=== PATIENT | female | born 1945 | race Caucasian/White ===

== ENCOUNTER → 2016-11-09 | Outpatient (CLI) | payer BC, OTHER ==
[~2016-11-09] VITALS: Ht 152.4 cm; Wt 95.0 kg
[~2016-11-09] MED LIST: ADVIN10/60 INH; ALBUAER19 INH; ASPI81TA28 PO; ATOR-26 PO; CHOLCAP5 PO; FIBER GUMMY PO; FLNIN NAE; FURO-85 PO; HYDR-4715 PO; HYDR25TA4 PO; LOSA100T65 PO; METO-649 PO; MULT1CAP3 PO; NAPR500T3 PO; SERT100T PO; TRAZ100T29 PO
[2016-11-09 15:15] VITALS: BP 152/78; PULSE 68; Ht 152.4 cm; Wt 95.0 kg
== END | disposition home or self-care (01) ==
LOC: C.NEUR 13:27
PROVIDERS: ATTEND Internal Medicine Pulmonary Disease
DX: G47.30 Sleep apnea, unspecified (principal); I27.2 Other secondary pulmonary hypertension; J45.909 Unspecified asthma, uncomplicated

== ENCOUNTER → 2017-03-11 | Outpatient (CLI) | payer BC, OTHER ==
[~2017-03-11] MED LIST changes: -METO-649 PO; +METO1TAB71 PO
[2017-03-11 13:21] LABS: BLOOD UREA NITROGEN 21 mg/dl (7-18); BUN/CREATININE RATIO 26.2 (10-20); CALCIUM 9.3 mg/dl (8.5-10.1); CARBON DIOXIDE 32 mmol/L (21-32); CHLORIDE 106 mmol/L (98-107); CREATININE 0.79 mg/dl (0.60-1.20); GLUCOSE 97 mg/dl (70-99); POTASSIUM 3.6 mmol/L (3.5-5.1); SODIUM 142 mmol/L (136-145)
== END | disposition home or self-care (01) ==
LOC: C.LABPVFM 09:33
PROVIDERS: ATTEND Nurse Practitioner Family
DX: Z01.812 Encounter for preprocedural laboratory examination (principal)

== ENCOUNTER → 2017-03-15 | Outpatient (CLI) | payer BC, OTHER | END | disposition home or self-care (01) | LOC: C.LABPVFM 12:07 | PROVIDERS: ATTEND Family Medicine | DX: J02.9 Acute pharyngitis, unspecified (principal) ==

== ENCOUNTER → 2017-05-11 | Outpatient (CLI) | payer BC, OTHER ==
[2017-05-11 17:34] LABS: ALT/SGPT 35 U/L (12-78); BLOOD UREA NITROGEN 16 mg/dl (7-18); BUN/CREATININE RATIO 23.2 (10-20); CARBON DIOXIDE 30 mmol/L (21-32); CHLORIDE 106 mmol/L (98-107); CHOLESTEROL 127 mg/dl (0-200); CREATININE 0.68 mg/dl (0.60-1.20); GLUCOSE 88 mg/dl (70-99); POTASSIUM 3.7 mmol/L (3.5-5.1); SODIUM 141 mmol/L (136-145); TRIGLYCERIDES 77 mg/dl (0-150); VERY LOW DENSITY LIPOPROT CALC 15 mg/dl
[2017-05-11 17:37] LABS: ALB/GLOB RATIO 1.1 (0.9-2); ALKALINE PHOSPHATASE 87 U/L (45-117); AST/SGOT 23 U/L (15-37); CHOLESTEROL/HDL RATIO 2.5; HDL CHOLESTEROL 51 mg/dl; LDL CHOLESTEROL CALCULATED 61 mg/dl
== END | disposition home or self-care (01) ==
LOC: C.LABPVFM 10:59
PROVIDERS: ATTEND Family Medicine
DX: I10 Essential (primary) hypertension (principal); R73.03 Prediabetes; E78.5 Hyperlipidemia, unspecified; R09.81 Nasal congestion

== ENCOUNTER → 2017-09-02 | Outpatient (CLI) | payer BC, OTHER ==
[~2017-09-02] MED LIST changes: -METO1TAB71 PO; +METO200T32 PO
== END | disposition home or self-care (01) ==
LOC: C.LABPVFM 13:15
PROVIDERS: ATTEND Family Medicine
DX: N39.0 Urinary tract infection, site not specified (principal)

== ENCOUNTER → 2017-12-02 | Outpatient (CLI) | payer BC, OTHER ==
[~2017-12-02] VITALS: Ht 152.4 cm; Wt 91.8 kg
[~2017-12-02] MED LIST changes: +NAPR-1231 PO; -NAPR500T3 PO
[2017-12-02 13:19] VITALS: BP 156/86; PULSE 78; Ht 152.4 cm; Wt 91.8 kg
== END | disposition home or self-care (01) ==
LOC: C.NEUR 12:45
PROVIDERS: ATTEND Internal Medicine Pulmonary Disease
DX: G47.30 Sleep apnea, unspecified (principal); J45.909 Unspecified asthma, uncomplicated

== ENCOUNTER 2020-01-02 14:12 | Observation (INO) ==
--- NOTE | 2020-01-02 14:15 | Emergency Department Note ---
Impression & Plan Brain TIA, Hypertension, Headache ED Provider Note NAME: DAPHNE BOTELLO AGE: 74 SEX: F : 1945 ARRIVES VIA: Ambulance INFORMANT: Patient, ED PROVIDER(S): Kenny Perry MD Chief Complaint: Slurred speech, head well puller strength weak, Dr. referred HPI: The get a call from EMS due to concern for a stroke. The patient has had some slurred speech and some right decreased head well puller strength. This started around 9 AM this morning his last known well. Patient is a prior history of TIA and expressive aphasia. The patient states she has had some associated frontal and right-sided headache. No recent trauma. The patient does take a baby aspirin which she did take this morning. Patient states that she feels that her symptoms are slightly improving. Patient denies any sensory deficits. Patient states nothing is made it worse in particular. Patient did not take anything prior to arrival for headache. ROS: See HPI for pertinent positives and negatives. A total of 10 systems were reviewed and otherwise negative. Past medical history: See below Surgical history: See below Social history: See below Physical Exam: GENERAL: NAD, non-toxic. Wearing a mask. EYE EXAM: Normal conjunctiva. PERRL, no anisocoria and EOM's grossly intact w/o pain. NECK: Supple, no nuchal rigidity, no adenopathy, non-tender. No signs of meningismus. LUNGS: Clear to auscultation. Normal chest wall mechanics. HEART: NSR, no MRG. ABDOMEN: Abdomen soft, non-tender, normo-active bowel sounds, no masses, no rebound or guarding. BACK: No CVA TTP. SKIN: No rashes and no bruising. UPPER EXTREMITIES: Upper extremities are grossly normal. LOWER EXTREMITIES: Grossly normal, no edema. NEURO EXAM: A&O x3, cranial nerves II-XII grossly intact, slow deliberate speech without obvious dysarthria, moves all 4 extremities on command w/o issue. Good finger to nose, no drift, no sensory deficits. Differential diagnoses: Infection, dehydration, metabolic abnormality, hypo/hyperglycemia, electrolyte disturbance, anemia, hypoxia, cardiac sources, intracerebral event, toxicologic, neurologic, as well as other pathologies. Course: Patient was seen and evaluated the bedside. Full history physical exam was performed. EKG: Indication: Strokelike symptoms Sinus bradycardia, rate of 56, normal intervals, normal axis, T wave flattening in aVL, no ST changes. No significant change from March 14, 2019. Imaging Studies: Radiology results as stated below per my review in the radiologist's interpretation: CT angio head w con, CT angio neck with con CLINICAL HISTORY: 74 years-old Female with Stroke evaluation . Acute strok elike symptoms COMPARISON STUDY: Head CT of same day TECHNIQUE: Following the IV administration of 119 cc of Optiray 320, CT angiogram of the head and neck was performed from the skull base to the vertex. Images are reviewed in the axial, sagittal, and coronal planes. 3-D MIPS images are created and assessed. IV contrast was administered without complication. All measurements were obtained according to NASCET criteria. A dose lowering technique was utilized adhering to the principles of ALARA. CT DOSE: 1164.02 mGy.cm FINDINGS: The heart appears enlarged. The opacified pulmonary arterial tree is unremarkable. Severe mixed plaque of the thoracic aortic arch. Suboptimal arterial opacification secondary to contrast bolus timing. There is patency of the imaged bilateral subclavian arteries and innominate artery. The common carotid arteries are patent. Moderate plaque the carotid bulbs and proximal internal carotid arteries results in less than 50% stenosis. There is focal kinking and tortuosity of the proximal cervical segment right ICA, image 273 series 6. There is moderate calcified plaque of the cavernous and supraclinoid segments. Moderate luminal narrowing involves the right cavernous segment, image 72 series 5. Mild multifocal luminal narrowing of the middle and anterior ce rebral arteries. Diminutive right A1 segment is likely developmental. Focal short segment area of high-grade stenosis involves the right A2 segment on image 118 series 5 and image 38 of series 500. Dominant left vertebral artery. There is tortuosity of the distal V2 segment left vertebral artery. There is moderate luminal narrowing of the distal V2 segment right vertebral artery is noted at the level of C2 involving a segment of at least 2 cm of the vessel. The majority of the right vertebral artery terminates into the right PICA. Diminutive basilar artery. origin of the left posterior cerebral artery. Mild multifocal luminal narrowing of the posterior cerebral arteries. No aneurysm, dissection, high-grade stenosis or proximal branch occlusion. Cerebral venous sinuses appear patent. Lung apices are clear without pneumothorax. Unremarkable thyroid. Secretions are noted within the nasopharynx, nasal turbinates. Mild mucosal thickening of the ethmoid air cells. No abnormal intracranial enhancement. Degenerative changes of the spine. Developmental bony fusion is noted at C6-C7. IMPRESSION: 1. No aneurysm, dissection, or proximal branch occlusion. 2. Atherosclerotic vascular disease with mild to moderate multifocal luminal narrowing as above. 3. Focal short segment area of high-grade stenosis involves the right A2 segment as above. ACT 112: Negative or not required by law. The above report was generated using voice recognition software. It may contain grammatical, syntax or spelling errors. Electronically signed by: Jeff Diana M.D. 01/02/2020 2:[address] head/brain wo con CLINICAL HISTORY: Strokelike symptoms COMPARISON STUDY: No previous studies for comparison. TECHNIQUE: Axial CT of the brain is performed from the vertex to the skull base. IV contrast was not administered for this examination. A dose lowering technique was utilized adhering to the principles of ALARA. CT DOSE: FINDINGS: No intra or extra-axial mass lesions are visualized. There is no CT evidence of acute cortical infarction. There is no evidence of midline shift. There is no acute hemorrhage. No calvarial fractures are visualized. There are patchy white matter hypodensities likely on a small vessel basis. There is no evidence of pathologic ventricular dilatation. There is no evidence of acute sinusitis IMPRESSION: No acute intracranial findings ACT 112: Negative or not required by law. Electronically signed by: Sonny Smallwood M.D. 01/02/2020 2:34 PM Dictated: 01/02/20 1432 Transcribed: 01/02/20 1432 Cardiac monitoring: An order was placed for continuous cardiac monitoring. The monitor shows a rate of 49 with sinus bradycardia rhythm. MDM: Patient was seen and stroke alert was called. I did speak with the on-call tele-stroke neurologist related that given her symptoms via EMS the patient did not likely have evidence of large vessel occlusion or require TPA given that she was outside of the window as her last known well was 9. The patient did have initial CT which is negative. CTA of the head and neck did show focal stenosis of the right A2 segment. Patient had right-sided weakness is likely would not necessarily correlate as a possible etiology at this time. The patient was ordered the rest of a full dose aspirin as she had Nakul had a baby aspirin this morning. The patient was ordered headache medication. Permissive hypertension to be allowed at this time. I did speak the on-call hospitalist Dr. Ko. The patient was subsequently admitted to the medicine service. Past Med/Surg History Medical History Asymmetric septal hypertrophy CAD (coronary artery disease) non-obstructive Depression (Chronic) GERD (gastroesophageal reflux disease) controlled Hx of bronchitis inhaler PRN (has not needed x years) Hyperlipidemia Hypertension Osteoarthritis Osteoporosis Sciatica Sleep apnea (Chronic) BIPAP Spinal stenosis current issue Transient ischemic attack (TIA) 07/2018 Surgical History History of appendectomy History of bilateral salpingo-oophorectomy History of cataract surgery B/L History of surgery GASTRIC SLEEVE (2+ YEARS AGO)- 50# WEIGHT LOSS Hx of cholecystectomy Hx of total hysterectomy Status post breast reduction Social History Preferred Language: Bermudian Communication Ability: Effective Beliefs That Will Affect Care: None marital status: Current Living Situation: Spouse Feels Safe at Home: Yes Smoking Status: Never smoker Second Hand Exposure: No ; Hx Alcohol Use: No Hx Substance Use: No Allergies Allergies Allergy/AdvReac Type Severity Reaction Status Date / Time lisinopril Allergy Severe ANGIOEDEMA: Verified 01/02/20 15:47 LIP SWELLING codeine Allergy Intermediate LIPS SWELL Verified 01/02/20 15:47 amlodipine AdvReac Intermediate Swelling Verified 01/02/20 15:47 of lower extremities. Sulfa (Sulfonamide AdvReac Mild NAUSEA Verified 01/02/20 15:47 Antibiotics) Home Meds Home Medications Medication Instructions Recorded Confirmed albuterol sulfate 90 mcg/actuation 2 puffs INHALATION Q4H PRN #1 gm 03/09/19 01/02/20 aerosol inhaler atorvastatin 80 mg tablet 40 mg PO HS #1 tab 03/09/19 01/02/20 nitroglycerin 0.4 mg sublingual 0.4 mg SL Q5M PRN #1 tab 03/09/19 01/02/20 tablet omeprazole 20 mg tablet,delayed 20 mg PO QAM #90 tab 03/09/19 01/02/20 release simethicone 80 mg chewable tablet 160 mg PO Q6H PRN tab 03/09/19 01/02/20 trazodone 100 mg tablet 100 mg PO HS #90 tab 03/09/19 01/02/20 fluticasone propion-salmeterol 1 puff INHALATION BID PRN 03/20/19 01/02/20 [Advair Diskus] aspirin 81 mg tablet,delayed 81 mg PO QAM 03/28/19 01/02/20 release furosemide 20 mg PO BID 01/02/20 01/02/20 hydralazine 5 mg PO BID 01/02/20 01/02/20 Previous Rx's Medication Instructions Recorded losartan 100 mg tablet 100 mg PO DAILY #90 tab 05/22/19 metoprolol succinate 200 mg 200 mg PO DAILY #90 tab 05/22/19 tablet,extended release 24 hr fluticasone propionate 50 2 sprays INTRANASAL HS #16 gm 08/20/19 mcg/actuation nasal spray,suspension alendronate 70 mg tablet See Rx Instructions .ROUTE 08/21/19 .COMPLEX #12 tablet sertraline 100 mg tablet 200 mg PO QPM #180 tab 11/22/19 Results & Data (ED) Vital Signs Vital Signs - 24 hr 01/02/20 14:28 01/02/20 14:33 01/02/20 14:34 Temperature 36.9 C Temperature Source Oral Pulse Rate 56 L 53 L 54 L Pulse Rate [Apical] Pulse Rate from SpO2 Sensor 53 L Respiratory Rate 18 Respiratory Effort / Characteristics Non-Labored Respiratory Depth Normal Blood Pressure 143/103 H 143/103 H Blood Pressure [Right Arm] Blood Pressure Mean 116 132 Blood Pressure Mean [Right Arm] Pulse Oximetry 96 97 Oxygen Delivery Method Room Air Sepsis Recent Fever Within 48 Hours No Sepsis New/Unexplained Change in Mental Status No Sepsis Action Taken by Nursing No Action Required 01/02/20 14:45 01/02/20 14:56 01/02/20 15:00 Temperature Temperature Source Pulse Rate 53 L 57 L 55 L Pulse Rate [Apical] Pulse Rate from SpO2 Sensor 55 L Respiratory Rate Respiratory Effort / Characteristics Respiratory Depth Blood Pressure 216/91 H Blood Pressure [Right Arm] Blood Pressure Mean 151 Blood Pressure Mean [Right Arm] Pulse Oximetry 92 Oxygen Delivery Method Sepsis Recent Fever Within 48 Hours Sepsis New/Unexplained Change in Mental Status Sepsis Action Taken by Nursing 01/02/20 15:01 01/02/20 15:15 01/02/20 15:16 Temperature Temperature Source Pulse Rate 55 L 52 L 55 L Pulse Rate [Apical] Pulse Rate from SpO2 Sensor 55 L 53 L Respiratory Rate Respiratory Effort / Characteristics Respiratory Depth Blood Pressure 196/76 H 185/78 H Blood Pressure [Right Arm] Blood Pressure Mean 103 109 Blood Pressure Mean [Right Arm] Pulse Oximetry 96 95 Oxygen Delivery Method Sepsis Recent Fever Within 48 Hours Sepsis New/Unexplained Change in Mental Status Sepsis Action Taken by Nursing 01/02/20 15:17 01/02/20 15:30 01/02/20 15:45 Temperature Temperature Source Pulse Rate 51 L 51 L 53 L Pulse Rate [Apical] Pulse Rate from SpO2 Sensor 51 L 51 L 53 L Respiratory Rate Respiratory Effort / Characteristics Respiratory Depth Blood Pressure 182/78 H Blood Pressure [Right Arm] Blood Pressure Mean 121 Blood Pressure Mean [Right Arm] Pulse Oximetry 95 96 90 Oxygen Delivery Method Sepsis Recent Fever Within 48 Hours Sepsis New/Unexplained Change in Mental Status Sepsis Action Taken by Nursing 01/02/20 15:46 01/02/20 16:00 01/02/20 16:01 Temperature Temperature Source Pulse Rate 51 L 54 L 49 L Pulse Rate [Apical] Pulse Rate from SpO2 Sensor 51 L 52 L 51 L Respiratory Rate Respiratory Effort / Characteristics Respiratory Depth Blood Pressure 192/82 H 171/80 H Blood Pressure [Right Arm] Blood Pressure Mean 100 131 Blood Pressure Mean [Right Arm] Pulse Oximetry 97 93 95 Oxygen Delivery Method Sepsis Recent Fever Within 48 Hours Sepsis New/Unexplained Change in Mental Status Sepsis Action Taken by Nursing 01/02/20 16:10 01/02/20 17:54 01/02/20 18:00 Temperature Temperature Source Pulse Rate 52 L 49 L Pulse Rate [Apical] 62 Pulse Rate from SpO2 Sensor 51 L 49 L Respiratory Rate 21 18 17 Respiratory Effort / Characteristics Respiratory Depth Blood Pressure 179/78 H 194/119 H Blood Pressure [Right Arm] 202/91 H Blood Pressure Mean 113 150 Blood Pressure Mean [Right Arm] 128 Pulse Oximetry 96 97 97 Oxygen Delivery Method Room Air Sepsis Recent Fever Within 48 Hours Sepsis New/Unexplained Change in Mental Status Sepsis Action Taken by Long-Term Medications Current Medication List: was personally reviewed by me Laboratory Data Attestation: I reviewed the patient's lab results. Result diagrams: 01/02/20 14:34 01/02/20 14:34 Lab Results 01/02/20 01/02/20 01/02/20 Range/Units 14:34 14:34 14:34 WBC 6.11 (4.8-10.8) K/uL RBC 4.33 (4.2-5.4) M/uL Hgb 12.2 (12.0-16.0) g/dL Hct 37.9 (37-47) % MCV 87.5 (80-100) fL MCH 28.2 (25-34) pg MCHC 32.2 (32-36) g/dL RDW Std Deviation 47.7 H (36.4-46.3) fL RDW Coeff of Cel[place] 14.8 H (11.5-14.5) % Plt Count 127 L (130-400) K/uL MPV 8.6 (7.4-10.4) fL Immature Gran % (Auto) 0.2 % Neut % (Auto) 56.3 % Lymph % (Auto) 33.1 % [place] % (Auto) 8.0 % Eos % (Auto) 2.1 % Baso % (Auto) 0.3 % Immature Gran # (Auto) 0.01 (0.00-0.02) K/uL Neut # (Auto) 3.44 (1.4-6.5) K/uL Lymph # (Auto) 2.02 (1.2-3.4) K/uL [place] # (Auto) 0.49 (0.11-0.59) K/uL Eos # (Auto) 0.13 (0-0.5) K/uL Baso # (Auto) 0.02 (0-0.2) K/uL PT 11.5 (9.0-12.0) Seconds INR 1.1 (0.9-1.1) APTT 27.9 (21.0-31.0) Seconds PTT Ratio 1.0 Sodium (136-145) mmol/L Potassium (3.5-5.1) mmol/L Chloride (98-107) mmol/L Carbon Dioxide (21-32) mmol/L Anion Gap (3-11) BUN (7-18) mg/dl Creatinine (0.6-1.2) mg/dl Est Cr Clr Drug Dosing ml/min Est GFR ( Amer) Est GFR (Non-Af Amer) BUN/Creatinine Ratio (10-20) Glucose (70-99) mg/dl POC Glucose (70-99) mg/dl Calcium (8.5-10.1) mg/dl Magnesium (1.8-2.4) mg/dl Total Bilirubin (0.2-1) mg/dl AST (15-37) U/L ALT (12-78) U/L Alkaline Phosphatase (45-117) U/L Troponin I (0-0.045) ng/ml Total Protein (6.4-8.2) gm/dl Albumin (3.4-5.0) gm/dl Globulin (2.5-4.0) gm/dl Albumin/Globulin Ratio (0.9-2) Urine Color Urine Appearance (Clear) Urine pH (4.5-7.5) Ur Specific [place] (1.000-1.030) Urine Protein (Negative) Urine Glucose (UA) (Negative) Urine Ketones (Negative) Urine Blood (Negative) Urine Nitrite (Negative) Urine Bilirubin (Negative) Urine Urobilinogen (Negative) Ur Leukocyte Esterase (Negative) Urine WBC (Auto) (0-5) /hpf Urine RBC (Auto) (0-4) /hpf U Hyaline Cast (Auto) (0-5) /lpf U Epithel Cells (Auto) (0-5) /lpf Urine Bacteria (Auto) (Negative) Ur Renal Epithelial Cell (0-5) /lpf Urine Crystals (None Prsent) Blood Type A Positive Antibody Screen NEGATIVE 01/02/20 01/02/20 01/02/20 Range/Units 14:34 14:46 14:50 WBC (4.8-10.8) K/uL RBC (4.2-5.4) M/uL Hgb (12.0-16.0) g/dL Hct (37-47) % MCV (80-100) fL MCH (25-34) pg MCHC (32-36) g/dL RDW Std Deviation (36.4-46.3) fL RDW Coeff of Celso (11.5-14.5) % Plt Count (130-400) K/uL MPV (7.4-10.4) fL Immature Gran % (Auto) % Neut % (Auto) % Lymph % (Auto) % [place] % (Auto) % Eos % (Auto) % Baso % (Auto) % Immature Gran # (Auto) (0.00-0.02) K/uL Neut # (Auto) (1.4-6.5) K/uL Lymph # (Auto) (1.2-3.4) K/uL [place] # (Auto) (0.11-0.59) K/uL Eos # (Auto) (0-0.5) K/uL Baso # (Auto) (0-0.2) K/uL PT (9.0-12.0) Seconds INR (0.9-1.1) APTT (21.0-31.0) Seconds PTT Ratio Sodium 138 (136-145) mmol/L Potassium 3.9 (3.5-5.1) mmol/L Chloride 107 (98-107) mmol/L Carbon Dioxide 28 (21-32) mmol/L Anion Gap 3.0 (3-11) BUN 17 (7-18) mg/dl Creatinine 0.71 (0.6-1.2) mg/dl Est Cr Clr Drug Dosing 77.0 ml/min Est GFR ( Amer) 98.6 Est GFR (Non-Af Amer) 85.1 BUN/Creatinine Ratio 23.6 H (10-20) Glucose 97 (70-99) mg/dl POC Glucose 99 (70-99) mg/dl Calcium 8.4 L (8.5-10.1) mg/dl Magnesium 2.3 (1.8-2.4) mg/dl Total Bilirubin 0.5 (0.2-1) mg/dl AST 19 (15-37) U/L ALT 25 (12-78) U/L Alkaline Phosphatase 67 (45-117) U/L Troponin I < 0.015 (0-0.045) ng/ml Total Protein 6.9 (6.4-8.2) gm/dl Albumin 3.5 (3.4-5.0) gm/dl Globulin 3.4 (2.5-4.0) gm/dl Albumin/Globulin Ratio 1.0 (0.9-2) Urine Color Yellow Urine Appearance Clear (Clear) Urine pH 8.0 H (4.5-7.5) Ur Specific [place] 1.023 (1.000-1.030) Urine Protein Negative (Negative) Urine Glucose (UA) Negative (Negative) Urine Ketones Negative (Negative) Urine Blood Negative (Negative) Urine Nitrite Negative (Negative) Urine Bilirubin Negative (Negative) Urine Urobilinogen Negative (Negative) Ur Leukocyte Esterase 1+ H (Negative) Urine WBC (Auto) 1-5 (0-5) /hpf Urine RBC (Auto) 0-4 (0-4) /hpf U Hyaline Cast (Auto) 0 (0-5) /lpf U Epithel Cells (Auto) 10-20 H (0-5) /lpf Urine Bacteria (Auto) Negative (Negative) Ur Renal Epithelial Cell 0-5 (0-5) /lpf Urine Crystals Calcium Oxalate A (None Prsent) Blood Type Antibody Screen Administered Medications Ioversol (Optiray 320 125ml) 119 ml IV ONCE PRN PRN Reason: Interaction Checking Stop: 01/06/20 14:19 Last Admin: 01/02/20 14:20 Dose: 119 ml Documented by: [id number] Discontinued Medications Acetaminophen (Tylenol) 650 mg PO NOW STA Stop: 01/02/20 15:31 Last Admin: 01/02/20 15:36 Dose: 650 mg Documented by: [id number] Aspirin (Aspirin) 243 mg PO NOW STA Stop: 01/02/20 15:31 Last Admin: 01/02/20 15:36 Dose: 243 mg Documented by: [id number] Prochlorperazine (Compazine) 10 mg IV NOW STA Stop: 01/02/20 15:31 Last Admin: 01/02/20 15:36 Dose: 10 mg Documented by: [id number] Discharge Plan Visit Data Chief Complaint: Stroke Alert ED Provider: Kenny Perry Discharge Problem: Brain TIA, Hypertension, Headache Forms Stand Alone Forms: My [facility] Prescriptions Prescriptions: No Action metoprolol succinate 200 mg tablet extended release 24 hr 200 mg PO DAILY Qty: 90 RF: 3 losartan 100 mg tablet 100 mg PO DAILY Qty: 90 RF: 1 fluticasone propionate 50 mcg/actuation spray,suspension 2 sprays intranasal HS Qty: 16 RF: 2 alendronate 70 mg tablet See Rx Instructions .ROUTE .COMPLEX Qty: 12 RF: 5 sertraline 100 mg tablet 200 mg PO QPM Qty: 180 RF: 1 atorvastatin 80 mg tablet 40 mg PO HS Qty: 1 RF: 0 nitroglycerin 0.4 mg tablet, sublingual 0.4 mg SL Q5M PRN (Reason: chest pain) Qty: 1 RF: 0 omeprazole 20 mg tablet,delayed release (DR/EC) 20 mg PO QAM Qty: 90 RF: 0 simethicone 80 mg tablet,chewable 160 mg PO Q6H PRN (Reason: abdominal distention) RF: 0 trazodone 100 mg tablet 100 mg PO HS Qty: 90 RF: 0 albuterol sulfate 90 mcg/actuation HFA aerosol inhaler 2 puffs inhalation Q4H PRN (Reason: shortness of breath or wheezing) Qty: 1 RF: 0 fluticasone propion-salmeterol [Advair Diskus] 100-50 mcg/dose blister with device 1 puff inhalation BID PRN (Reason: WHEEZING, UNSUALLY WINTER) RF: 0 aspirin [Aspirin Low Dose] 81 mg tablet,delayed release (DR/EC) 81 mg PO QAM RF: 0 hydralazine 10 mg tablet 5 mg PO BID RF: 0 furosemide 20 mg tablet 20 mg PO BID RF: 0 Discharge Problem: Hypertension Qualifiers: Hypertension type: unspecified Qualified Code(s): I10 - Essential (primary) hypertension Headache Qualifiers: Headache type: unspecified Headache chronicity pattern: acute headache Intractability: not intractable Qualified Code(s): R51 - Headache
[2020-01-02] MEDS ORDERED: OPTIRAY 320 125ml IV PRN (14:20)
--- NOTE | 2020-01-02 14:35 | CT Scan Report ---
CT head/brain wo con CLINICAL HISTORY: Strokelike symptoms COMPARISON STUDY: No previous studies for comparison. TECHNIQUE: Axial CT of the brain is performed from the vertex to the skull base. IV contrast was not administered for this examination. A dose lowering technique was utilized adhering to the principles of ALARA. CT DOSE: FINDINGS: No intra or extra-axial mass lesions are visualized. There is no CT evidence of acute cortical infarc tion. There is no evidence of midline shift. There is no acute hemorrhage. No calvarial fractures ar e visualized. There are patchy white matter hypodensities likely on a small vessel basis. There is no evidence of pathologic ventricular dilatation. There is no evidence of acute sinusitis IMPRESSION: No acute intracranial findings ACT 112: Negative or not required by law. Electronically signed by: Sonny Smallwood M.D. 01/02/2020 2:34 PM
[2020-01-02 14:46] LABS: Basophils # (auto) 0.02 K/uL (0-0.2); Basophils % (auto) 0.3 %; Eosinophils # (auto) 0.13 K/uL (0-0.5); Eosinophils % (auto) 2.1 %; Hematocrit (blood only) 37.9 % (37-47); Hemoglobin 12.2 g/dL (12.0-16.0); Immature Granulocytes # (auto) 0.01 K/uL (0.00-0.02); Immature Granulocytes % (auto) 0.2 %; Lymphocytes # (auto) 2.02 K/uL (1.2-3.4); Lymphocytes % (auto) 33.1 %; Mean Corpuscular Hemoglobin 28.2 pg (25-34); Mean Corpuscular Hgb Conc 32.2 g/dL (32-36); Mean Corpuscular Volume 87.5 fL (80-100); Mean Platelet Volume 8.6 fL (7.4-10.4); Monocytes # (auto) 0.49 K/uL (0.11-0.59); Neutrophils # (auto) 3.44 K/uL (1.4-6.5); Neutrophils % (auto) 56.3 %; Platelet Count 127 K/uL (130-400); RDW Coefficient of Variation 14.8 % (11.5-14.5); RDW Standard Deviation 47.7 fL (36.4-46.3); Red Blood Count 4.33 M/uL (4.2-5.4); White Blood Count 6.11 K/uL (4.8-10.8)
--- NOTE | 2020-01-02 14:48 | CT Scan Report ---
CT angio head w con, CT angio neck with con CLINICAL HISTORY: 74 years-old Female with Stroke evaluation . Acute strokelike symptoms COMPARISON STUDY: Head CT of same day TECHNIQUE: Following the IV administration of 119 cc of Optiray 320, CT angiogram of the head and nec k was performed from the skull base to the vertex. Images are reviewed in the axial, sagittal, and co margarita planes. 3-D MIPS images are created and assessed. IV contrast was administered without complica tion. All measurements were obtained according to NASCET criteria. A dose lowering technique was util ized adhering to the principles of ALARA. CT DOSE: 1164.02 mGy.cm FINDINGS: The heart appears enlarged. The opacified pulmonary arterial tree is unremarkable. Severe mixed plaqu e of the thoracic aortic arch. Suboptimal arterial opacification secondary to contrast bolus timing. There is patency of the imaged bilateral subclavian arteries and innominate artery. The common caroti d arteries are patent. Moderate plaque the carotid bulbs and proximal internal carotid arteries resul ts in less than 50% stenosis. There is focal kinking and tortuosity of the proximal cervical segment right ICA, image 273 series 6. There is moderate calcified plaque of the cavernous and supraclinoid s egments. Moderate luminal narrowing involves the right cavernous segment, image 72 series 5. Mild mul tifocal luminal narrowing of the middle and anterior cerebral arteries. Diminutive right A1 segment i s likely developmental. Focal short segment area of high-grade stenosis involves the right A2 segment on image 118 series 5 and image 38 of series 500. Dominant left vertebral artery. There is tortuosity of the distal V2 segment left vertebral artery. T here is moderate luminal narrowing of the distal V2 segment right vertebral artery is noted at the le halina of C2 involving a segment of at least 2 cm of the vessel. The majority of the right vertebral art reymundo terminates into the right PICA. Diminutive basilar artery. origin of the left posterior cer ebral artery. Mild multifocal luminal narrowing of the posterior cerebral arteries. No aneurysm, diss ection, high-grade stenosis or proximal branch occlusion. Cerebral venous sinuses appear patent. Lung apices are clear without pneumothorax. Unremarkable thyroid. Secretions are noted within the samantha opharynx, nasal turbinates. Mild mucosal thickening of the ethmoid air cells. No abnormal intracrania l enhancement. Degenerative changes of the spine. Developmental bony fusion is noted at C6-C7. IMPRESSION: 1. No aneurysm, dissection, or proximal branch occlusion. 2. Atherosclerotic vascular disease with mild to moderate multifocal luminal narrowing as above. 3. Focal short segment area of high-grade stenosis involves the right A2 segment as above. ACT 112: Negative or not required by law. The above report was generated using voice recognition software. It may contain grammatical, syntax o r spelling errors. Electronically signed by: Jeff Diana M.D. 01/02/2020 2:47 PM
[2020-01-02 15:02] LABS: Alanine Aminotransferase 25 U/L (12-78); Albumin Level 3.5 gm/dl (3.4-5.0); Aspartate Aminotransferase 19 U/L (15-37); BUN Creatinine Ratio 23.6 (10-20); Blood Urea Nitrogen 17 mg/dl (7-18); Calcium 8.4 mg/dl (8.5-10.1); Carbon Dioxide 28 mmol/L (21-32); Chloride 107 mmol/L (98-107); Est GFR (African American) 98.6; Est GFR (Non-African American) 85.1; Glucose 97 mg/dl (70-99); INR 1.1 (0.9-1.1); Magnesium 2.3 mg/dl (1.8-2.4); Partial Thromboplastin Time 27.9 Seconds (21.0-31.0); Potassium 3.9 mmol/L (3.5-5.1); Prothrombin Time 11.5 Seconds (9.0-12.0); Sodium 138 mmol/L (136-145)
[2020-01-02 15:06] LABS: Appearance Urine Clear (Clear); Bacteria Urine Automated Negative (Negative); Bilirubin Urine Negative (Negative); Blood Urine Negative (Negative); Cast Urine Automated 0 /lpf (0-5); Color Urine Yellow; Glucose Urine UA Negative (Negative); Ketones Urine Negative (Negative); Leukocyte Esterase Urine 1+ (Negative); Nitrite Urine Negative (Negative); Protein Urine Negative (Negative); RBC Urine Automated 0-4 /hpf (0-4); Specific Gravity Urine 1.023 (1.000-1.030); Urobilinogen Urine Negative (Negative)
[2020-01-02 15:07] LABS: Alkaline Phosphatase 67 U/L (45-117); Bilirubin,Total 0.5 mg/dl (0.2-1); Globulin 3.4 gm/dl (2.5-4.0); Total Protein 6.9 gm/dl (6.4-8.2); Troponin I < 0.015 ng/ml (0-0.045)
[2020-01-02] MEDS ORDERED: PROCHLORPERAZINE 5 MG/ML 2 ML VIAL IV STA (15:30)
[2020-01-02] MEDS ORDERED: ACETAMINOPHEN 325 MG TAB PO STA (15:30)
[2020-01-02] MEDS ORDERED: ASPIRIN CHEW 324 MG PO STA (15:30)
[2020-01-02 15:36] LABS: Renal Epithelial Cells Urine 0-5 /lpf (0-5)
--- NOTE | 2020-01-02 16:50 | Electrocardiogram Report ---
Test Reason : Blood Pressure : / mmHG Vent. Rate : 056 BPM Atrial Rate : 056 BPM P-R Int : 176 ms QRS Dur : 080 ms QT Int : 456 ms P-R-T Axes : 033 -23 071 degrees QTc Int : 440 ms Poor data quality, interpretation may be adversely affected Sinus bradycardia Left ventricular hypertrophy with repolarization abnormality When compared with ECG of 14-MAR-2019 14:14, No significant change was found Confirmed by Mack Sosa ([id number]) on 01/02/2020 4:50:14 PM Referred By: ED Confirmed By:Mack Sosa
--- NOTE | 2020-01-02 17:17 | History & Physical Report ---
Date of Service January 02, 2020 Assessment & Plan (1) Stroke-like symptoms: Suspected TIA, ABCD2 score 6: high risk Ongoing mild right upper extremity weakness although unclear if related to acute expressive dysphasia which has resolved. Admit to PCU for CVA workup Add clopidogrel to ASA TTE MRI brain w/o contrast Fating lipid panel and HbA1C in AM Consult neurology (2) Hypertensive urgency: Continue her routine anti-hypertensives: Losartan 100mg PO daily Metoprolol ER 200mg PO daily Hydralazine 5mg PO BIID Lasix 20mg PO BID If sBP > 220 overnight despite her usual medications start on nicardipine drip with usual titration (3) Hypertension: As above (4) Hyperlipidemia: Continue atorvastatin as above (5) Esophageal reflux: Switch omeprazole to pantoprazole as per hospital formulary (6) DVT prophylaxis: Lovenox 40mg SQ daily History of Present Illness Chief Complaint: Strok-like symptoms Primary Care Provider: Medina Lewis MD Sue Walsh is a 74 year old female who presents to the ER with stroke-like symptoms. She was last well at around 5:30am this morning when she woke up no problems reported at that time. She went back to sleep in a lazy boy chair. Her woke around 10-10:30am and in hindsight she was having trouble speaking at that time but her did not notice anything. She was finding it more difficult to get out the words she wanted to say. This appeared to progress as the day went on and she went to her PCP at [facility] where she reports she was also noted to have a right arm weakness and was advised to go to the ER. She reports her symptoms lasted for around 2 hours although even after this time she was only able to say 1-2 word sentences appropriately. She denies any vision or hearing changes. She is right handed but has not noticed any weakness or change in sensation in her extremities. No facial droop noticed by family. She notes having similar symptoms last year which resolved spontaneously and she only present for medical care after 2 days. On that occasion her symptoms only lasted for 1 hour. Allergies Allergy/AdvReac Type Severity Reaction Status Date / Time lisinopril Allergy Severe ANGIOEDEMA: Verified 01/02/20 15:47 LIP SWELLING codeine Allergy Intermediate LIPS SWELL Verified 01/02/20 15:47 amlodipine AdvReac Intermediate Swelling Verified 01/02/20 15:47 of lower extremities. Sulfa (Sulfonamide AdvReac Mild NAUSEA Verified 01/02/20 15:47 Antibiotics) Home Medications Home Medications Medication Instructions Recorded Confirmed Type albuterol sulfate 90 mcg/actuation 2 puffs INHALATION Q4H PRN #1 gm 03/09/19 01/02/20 History aerosol inhaler atorvastatin 80 mg tablet 40 mg PO HS #1 tab 03/09/19 01/02/20 History nitroglycerin 0.4 mg sublingual 0.4 mg SL Q5M PRN #1 tab 03/09/19 01/02/20 History tablet omeprazole 20 mg tablet,delayed 20 mg PO QAM #90 tab 03/09/19 01/02/20 History release simethicone 80 mg chewable tablet 160 mg PO Q6H PRN tab 03/09/19 01/02/20 History trazodone 100 mg tablet 100 mg PO HS #90 tab 03/09/19 01/02/20 History fluticasone propion-salmeterol 1 puff INHALATION BID PRN 03/20/19 01/02/20 History [Advair Diskus] aspirin 81 mg tablet,delayed 81 mg PO QAM 03/28/19 01/02/20 History release losartan 100 mg tablet 100 mg PO DAILY #90 tab 05/22/19 01/02/20 Rx metoprolol succinate 200 mg 200 mg PO DAILY #90 tab 05/22/19 01/02/20 Rx tablet,extended release 24 hr fluticasone propionate 50 2 sprays INTRANASAL HS #16 gm 08/20/19 01/02/20 Rx mcg/actuation nasal spray,suspension alendronate 70 mg tablet See Rx Instructions .ROUTE 08/21/19 01/02/20 Rx .COMPLEX #12 tablet sertraline 100 mg tablet 200 mg PO QPM #180 tab 11/22/19 01/02/20 Rx furosemide 20 mg PO BID 01/02/20 01/02/20 History hydralazine 5 mg PO BID 01/02/20 01/02/20 History Past Med/Surg History Medical History Asymmetric septal hypertrophy CAD (coronary artery disease) non-obstructive Depression (Chronic) GERD (gastroesophageal reflux disease) controlled Hx of bronchitis inhaler PRN (has not needed x years) Hyperlipidemia Hypertension Osteoarthritis Osteoporosis Sciatica Sleep apnea (Chronic) BIPAP Spinal stenosis current issue Transient ischemic attack (TIA) 07/2018 Surgical History History of appendectomy History of bilateral salpingo-oophorectomy History of cataract surgery B/L History of surgery GASTRIC SLEEVE (2+ YEARS AGO)- 50# WEIGHT LOSS Hx of cholecystectomy Hx of total hysterectomy Status post breast reduction Social History Preferred Language: Bulgarian Communication Ability: Effective Solar Photovoltaic Installer Required: No Beliefs That Will Affect Care: None marital status: Current Living Situation: Spouse Other Information That Helps Us Care for You: No Feels Safe at Home: Yes Safety Concerns: Feels Safe At This Time Smoking Status: Unknown if ever smoked Hx Alcohol Use: No Hx Substance Use: No Review of Systems Review of Systems: All systems reviewed & are unremarkable except as noted in HPI & below Physical Exam Constitutional: well developed, well nourished and + morbidly obese; no acute distress Eyes: PERRL, conjunctivae normal, anicteric sclerae EOM intact bilaterally ENMT: external ear and nose normal, oropharynx normal Neck: trachea midline, no thyromegaly + short neck and + thick neck Respiratory: normal respiratory effort, lungs clear to auscultation Cardiovascular: Rate/Rhythm: regular rate and regular rhythm Heart Sounds: + murmur (LUSB ejection, no radition to carotids) Vessels: no JVD Extremities: normal capillary refill and + pedal edema Gastrointestinal (Abdomen): normal bowel sounds, soft, nontender, no hepatosplenomegaly Musculoskeletal: no cyanosis or clubbing, extremities motor strength 5/5 Skin: no rashes, warm and dry Neurologic: moves all extremities and awake; not confused Psychiatric: A+Ox3, euthymic affect Results & Data Results & Data ([facility]) Vital Signs (Past 12 Hours) Vital Signs Temp Pulse Resp BP Pulse Ox 01/02/20 16:10 52 L 21 179/78 H 96 01/02/20 16:01 49 L 171/80 H 95 01/02/20 16:00 54 L 93 01/02/20 15:46 51 L 192/82 H 97 01/02/20 15:45 53 L 90 01/02/20 15:30 51 L 182/78 H 96 01/02/20 15:17 51 L 95 01/02/20 15:16 55 L 185/78 H 95 01/02/20 15:15 52 L 01/02/20 15:01 55 L 196/76 H 96 01/02/20 15:00 55 L 92 01/02/20 14:56 57 L 216/91 H 01/02/20 14:45 53 L 01/02/20 14:34 54 L 01/02/20 14:33 53 L 143/103 H 97 01/02/20 14:28 36.9 C 56 L 18 143/[address] head/brain wo con IMPRESSION: No acute intracranial findings CT angio head w con, CT angio neck with con IMPRESSION: 1. No aneurysm, dissection, or proximal branch occlusion. 2. Atherosclerotic vascular disease with mild to moderate multifocal luminal narrowing as above. 3. Focal short segment area of high-grade stenosis involves the right A2 segment as above. ECG Indication: altered mental status Rate (beats per minute): 56 Rhythm: sinus bradycardia Findings: + other (Left ventricular hypertrophy) Comparison ECG Date: from (03/14/2019) Change: no significant change Code Status & VTE Plan Code Status Full VTE Prophylaxis Plan VTE Prophylaxis will be ordered: Yes PG Care Time/CCT Total # of Minutes Spent Total Time Spent with Patient: Total time spent is greater than 50% in coordination of care (as documented) at patient's floor/unit and/or counseling patient: Coding Level of Care Code 28749 Initial Inpt Care Lvl 3 Diagnoses Stroke-like symptoms R29.90 Hypertensive urgency I16.0 Hypertension I10 Hypertension type: unspecified Hyperlipidemia E78.5 Esophageal reflux K21.9 DVT prophylaxis Z29.9 (1) Hypertension Hypertension type: unspecified Qualified Code(s): I10 - Essential (primary) hypertension
[2020-01-02] MEDS ORDERED: ONDANSETRON INJ 2 MG/ML 2 ML VIAL IV PRN (20:53)
[2020-01-02] MEDS ORDERED: POLYETHYLENE (MIRALAX) 17 GM PACK PO PRN (20:53)
[2020-01-02] MEDS ORDERED: SIMETHICONE 80 MG CHEW PO PRN (20:53)
[2020-01-02] MEDS ORDERED: ACETAMINOPHEN 325 MG TAB PO PRN (20:53)
[2020-01-02] MEDS ORDERED: PHARMACIST DISCHARGE MED REC CONSULT PRN (20:53)
[2020-01-02] MEDS ORDERED: FLUTICASONE/SALMETEROL 100/50 (ADVAIR) 14 PUFF/1 INHALER INH PRN (20:53)
[2020-01-02] MEDS ORDERED: FUROSEMIDE 20 MG TAB PO SCH (21:00)
[2020-01-02] MEDS ORDERED: ENOXAPARIN INJ 40 MG/0.4 ML SYR SQ SCH (21:00)
[2020-01-02] MEDS ORDERED: FLUTICASONE PROPIONATE NA SPR 16 GM BTL NAE SCH (21:00)
[2020-01-02] MEDS ORDERED: ATORVASTATIN 40 MG TAB PO SCH (21:00)
[2020-01-02] MEDS ORDERED: SERTRALINE HCL 100 MG TABLET PO SCH (21:00)
[2020-01-02] MEDS ORDERED: TRAZODONE HCL 100 MG TAB PO SCH (21:00)
[2020-01-02] MEDS: HydrALAZINE 10 MG TAB PO SCH (21:40)
[2020-01-02] MEDS: CLOPIDOGREL BISULFATE 75 MG TAB PO SCH (21:40)
[2020-01-02] MEDS ORDERED: FLUTICASONE/VILANTEROL 100/25MCG 14 PUFFS/INHALER INH PRN (21:57)
[2020-01-03 05:47] LABS: Basophils # (auto) 0.02 K/uL (0-0.2); Basophils % (auto) 0.4 %; Eosinophils # (auto) 0.11 K/uL (0-0.5); Hematocrit (blood only) 37.1 % (37-47); Hemoglobin 12.1 g/dL (12.0-16.0); Lymphocytes # (auto) 1.51 K/uL (1.2-3.4); Lymphocytes % (auto) 27.3 %; Mean Corpuscular Hemoglobin 28.3 pg (25-34); Mean Corpuscular Hgb Conc 32.6 g/dL (32-36); Mean Corpuscular Volume 86.7 fL (80-100); Mean Platelet Volume 8.3 fL (7.4-10.4); Monocytes % (auto) 7.2 %; Neutrophils % (auto) 63.1 %; Platelet Count 101 K/uL (130-400); RDW Coefficient of Variation 14.8 % (11.5-14.5); RDW Standard Deviation 46.7 fL (36.4-46.3); Red Blood Count 4.28 M/uL (4.2-5.4); White Blood Count 5.54 K/uL (4.8-10.8)
[2020-01-03 06:11] LABS: Estimated Average Glucose 114 mg/dl; Hemoglobin A1C 5.6 % (4.5-5.6)
[2020-01-03 06:22] LABS: BUN Creatinine Ratio 24.4 (10-20); Calcium 8.3 mg/dl (8.5-10.1); Creatinine Clr Calc Pharmacy 94.9 ml/min; Est GFR (Non-African American) 93.2; Potassium 3.6 mmol/L (3.5-5.1)
--- NOTE | 2020-01-03 06:24 | Magnetic Resonance Report ---
MR brain wo con HISTORY: Mental status change expressive dysphasia, RUE weakness TECHNIQUE: Multiplanar multisequence MRI of the brain was performed without the use of contrast. COMPARISON STUDY: None. FINDINGS: Diffusion images demonstrate a small cortical infarct of the left cerebral hemisphere at th e junction of the anterior and parietal lobes. The ventricular system is midline. There are components of age-related chronic small vessel changes a s well as atrophy. The internal auditory canals appear symmetric. IMPRESSION: Small left cortical infarct. ACT 112: Negative or not required by law. The above report was generated using voice recognition software. It may contain grammatical, syntax or spelling errors. Electronically signed by: David Esparza M.D. 01/03/2020 6:23 AM
[2020-01-03] MEDS: HydrALAZINE 10 MG TAB PO SCH (08:05)
[2020-01-03] MEDS: CLOPIDOGREL BISULFATE 75 MG TAB PO SCH (08:05)
[2020-01-03] MEDS ORDERED: LOSARTAN POTASSIUM 50 MG TAB PO SCH (09:00)
[2020-01-03] MEDS ORDERED: ASPIRIN 81 MG ECTAB PO SCH (09:00)
[2020-01-03] MEDS ORDERED: PANTOprazole 40 MG TAB PO SCH (09:00)
[2020-01-03] MEDS ORDERED: FUROSEMIDE 20 MG TAB PO SCH (09:00)
[2020-01-03] MEDS ORDERED: METOPROLOL SUCC 50MG EXT REL TAB PO SCH (09:00)
--- NOTE | 2020-01-03 10:18 | Neurology Consultation ---
Date of Consultation January 03, 2020 Assessment & Plan (1) Acute CVA (cerebrovascular accident): (2) Hypertensive urgency: (3) Expressive aphasia: (4) Muscle right arm weakness: Patient has suffered an acute left parietal stroke of the small nature high up in the cortex. This resulted in some temporary right upper extremity weakness and expressive aphasia. Today her NIH Stroke Scale equals 0 and she does not have any focal deficits or speech problems. The stroke occurred despite 81 m illigram aspirin tablet daily. The etiology of the stroke is likely small vessel ischemic disease from hypertension. She had an elevated blood pressure on admission to a significant degree. Is improved a little today. She does not have a history of cigarette smoking, diabetes, or significant dyslipidemia although she is on cholesterol medicine. CT angiography of the head and neck were unremarkable except for a high-grade stenosis focally in the right A2 segment (which has nothing to do with her current stroke or symptoms). Recommendations: 1. Agree with adding clopidogrel 75 milligrams to 81 milligram aspirin tablet daily. Do this for 3 weeks and then discontinue the aspirin, staying on clopidogrel alone. 2. Echocardiogram is pending 3. Control blood pressure as you are doing, aiming for a mean arterial pressure of approximately 95-100. 4. Continue atorvastatin at its current dose as her lipid parameters are quite normal. 5. Increase activity as able. 6. I will follow as an outpatient if desired Overall, I spent a total of 65 minutes with this case including review of records, review of MRI films, direct evaluation the patient at bedside, and discussion of the case with the patient at bedside, and Dr. Henderson, including differential diagnosis treatment options. History of Present Illness Reason for Consultation: Patient is a 74-year-old, who I was asked to see at the request of Dr. Ko, for neurologic consultation regarding stroke. Requesting Physician: Dr. Ko Attending Physician: Uriel Henderson MD History of Present Illness Patient has a history of hypertension for many years and dyslipidemia for several years. She has no history of cigarette smoking or diabetes. Patient has a history of L4-5 spinal stenosis post lumbar surgery by Dr. Price in March of 2019. She is doing well with this. She does have bilateral knee pain and this affects her gait. Although there is no history of stroke back in July of 2018 she had an episode of inability to get words out (she knew what she wanted to say but could not express the words) lasting about 60 minutes. This resolved and did not recur. She had no other accompanying symptoms and never sought medical attention. Patient was in her usual state when she woke up at 0530 on January 01. She was feeling fine but somewhat tired that morning. Around 1230 her daughter and the patient noticed that she could get words out well. She knew what she wanted to say but could not express herself. This was very similar to the episode in July of 2018. There may have been a little bit of confusion but she herself denies any pain or headache, weakness or numbness of the limbs, vision problems or mentation issues otherwise, balance problems or incontinence. She went to [facility] primary care doctor's office that afternoon and was sent to the emergency room. On January 01 at 1428 blood pressure was 143/103, pulse 56 and regular, respiratory rate 18, temperature 36.9, and O2 saturation 96 percent. On exam she has some mild right upper extremity weakness and some mild expressive aphasia. CT scan of the head was unremarkable. CT angiography of the head and neck revealed some mild nonspecific plaque and stenosis scattered throughout but a high-grade focal stenosis in the right A2 segment. CBC and Chem profile were unremarkable. Glucose was 99. Urinalysis was unremarkable. MRI of the brain showed a small acute left cortical infarct in the mid parietal head region. In general, there was mild atrophy and mild old nonspecific small vessel ischemic changes. I reviewed these films. This morning the patient feels that her speech and strength is normal and she has no headache. CBC was unremarkable. Triglycerides were 144 and cholesterol 106. Myoglobin A1c was 5.6. Blood pressure this morning was 159/70. Allergies Allergy/AdvReac Type Severity Reaction Status Date / Time lisinopril Allergy Severe ANGIOEDEMA: Verified 01/02/20 15:47 LIP SWELLING codeine Allergy Intermediate LIPS SWELL Verified 01/02/20 15:47 amlodipine AdvReac Intermediate Swelling Verified 01/02/20 15:47 of lower extremities. Sulfa (Sulfonamide AdvReac Mild NAUSEA Verified 01/02/20 15:47 Antibiotics) Home Medications Home Medications Medication Instructions Recorded Confirmed Type albuterol sulfate 90 mcg/actuation 2 puffs INHALATION Q4H PRN #1 gm 03/09/19 01/02/20 History aerosol inhaler atorvastatin 80 mg tablet 40 mg PO HS #1 tab 03/09/19 01/02/20 History nitroglycerin 0.4 mg sublingual 0.4 mg SL Q5M PRN #1 tab 03/09/19 01/02/20 History tablet omeprazole 20 mg tablet,delayed 20 mg PO QAM #90 tab 03/09/19 01/02/20 History release simethicone 80 mg chewable tablet 160 mg PO Q6H PRN tab 03/09/19 01/02/20 History trazodone 100 mg tablet 100 mg PO HS #90 tab 03/09/19 01/02/20 History fluticasone propion-salmeterol 1 puff INHALATION BID PRN 03/20/19 01/02/20 History [Advair Diskus] aspirin 81 mg tablet,delayed 81 mg PO QAM 03/28/19 01/02/20 History release losartan 100 mg tablet 100 mg PO DAILY #90 tab 05/22/19 01/02/20 Rx metoprolol succinate 200 mg 200 mg PO DAILY #90 tab 05/22/19 01/02/20 Rx tablet,extended release 24 hr fluticasone propionate 50 2 sprays INTRANASAL HS #16 gm 08/20/19 01/02/20 Rx mcg/actuation nasal spray,suspension alendronate 70 mg tablet See Rx Instructions .ROUTE 08/21/19 01/02/20 Rx .COMPLEX #12 tablet sertraline 100 mg tablet 200 mg PO QPM #180 tab 11/22/19 01/02/20 Rx furosemide 20 mg PO BID 01/02/20 01/02/20 History hydralazine 5 mg PO BID 01/02/20 01/02/20 History Patient History Medical History Asymmetric septal hypertrophy CAD (coronary artery disease) non-obstructive Depression (Chronic) Encounter for pre-operative examination GERD (gastroesophageal reflux disease) controlled Hx of bronchitis inhaler PRN (has not needed x years) Hyperlipidemia Hypertension (Acute) Non-ST elevation TN (NSTEMI) (Inactive) Osteoarthritis Osteoporosis Sciatica Sleep apnea (Chronic) BIPAP Spinal stenosis current issue Transient ischemic attack (TIA) 07/2018 Surgical History History of appendectomy History of bilateral salpingo-oophorectomy History of cataract surgery B/L History of surgery GASTRIC SLEEVE (2+ YEARS AGO)- 50# WEIGHT LOSS Hx of cholecystectomy Hx of total hysterectomy Status post breast reduction Family History Mother , age 74 of ovarian cancer Ovarian cancer Father , age 87 of heart issues Heart disease Social History Preferred Language: Marshallese Communication Ability: Effective Drum Puller Required: No Beliefs That Will Affect Care: None marital status: Current Living Situation: Spouse current occupational status: retired current occupation: Retired after 26 years:[employer] department at age 64 Other Information That Helps Us Care for You: No other: Did work in [employer] prior to [employer] Feels Safe at Home: Yes Safety Concerns: Feels Safe At This Time Smoking Status: Never smoker Second Hand Exposure: No ; Hx Alcohol Use: No Hx Substance Use: No Review of Systems Constitutional: no fever, no fatigue and no weakness Eyes: no diplopia, no eye pain and no worsening vision Ear, Nose, Mouth, Throat: no ear pain, no tinnitus, no hearing loss, no dizziness, no snoring, no hoarseness and no dysphagia Respiratory: no cough and no dyspnea Cardiovascular: no chest pain, no palpitations and no lightheadedness Gastrointestinal: no abdominal pain, no nausea and no vomiting Genitourinary: no dysuria, no urinary frequency and no urinary incontinence Musculoskeletal: + joint pain; no back pain, no neck pain, no radicular pain and no myalgia Integumentary: no rash and no lesions Neurologic: no gait abnormality, no localized weakness, no generalized weakness, no tingling, no numbness, no tremor(s), no abnormal movements, no headache(s), no abnormal speech, no confusion and no memory loss Psychiatric: no depression, no irritability, no anxiety, no difficulty concentrating, no confusion and no hallucinations Endocrine: no fatigue and no flushing Hematologic / Lymphatic: no easy bleeding and no easy bruising Allergy / Immunological: no urticaria and no problem reported Exam (Neuro) Physical Exam: The patient is right-handed. The patient is awake, alert, and attentive. Speech is normal without any aphasia or dysarthria. She can name objects, repeat phrases, and has normal spontaneous speech. Mentation and thought processes are intact, with orientation to person, place and time, and normal fund of knowledge. Attention and concentration are normal. Mood and affect are normal and appropriate. General appearance and grooming are normal. Short and long-term memory are intact. Patient can read and identify objects quite well. The discs are sharp with positive venous pulsations bilaterally. There are no exudates, hemorrhages, or blood vessel changes seen. Pupils are 4 mm bilaterally and reactive to light. Extraocular eye muscles are intact without nystagmus. Visual acuity and visual briggs seem normal grossly to confrontation. There are no deficits to sensation in the face in all 3 distributions of the fifth cranial nerve bilaterally. Corneal reflexes are positive bilaterally. Facial strength and symmetry was normal bilaterally. Hearing seems normal to whisper and finger rub bilaterally. Palate moves well without asymmetry. There is normal sternocleidomastoid and trapezius (shoulder shrug) strength bilaterally. Tongue is midline with good strength bilaterally. Neck has a full range of motion without discomfort. There are no cervical bruits bilaterally. There are no cranial or ocular bruits. Heart is without murmur. There is a regular rhythm and rate. Cervical, thoracic, and lumbar spine are nontender to palpation. Gait is narrow based, with good arm swing, turns, and stance. She limps because of knee pain bilaterally. With outstretched arms there is no drift. There are no resting, postural, or action tremors. There is no ataxia with finger to nose testing. There is good facility in the hands. No other abnormal involuntary movements are noted. Motor strength is 5/5 diffusely in the arms bilaterally including deltoids, biceps, triceps, brachioradialis, wrist flexors and extensors, plastic production machine setter, and intrinsic hand muscles. Motor strength is 5/5 diffusely in the legs bilaterally including hip flexors, quadriceps, hamstrings, gastrocnemius, tibialis anterior, tibialis posterior, and Peroneii muscles. Toe extensors are normal and there is good bulk in the extensor digitorum brevis muscles bilaterally. The limbs have good tone without rigidity or spasticity. There is no atrophy noted in the muscles. Muscle bulk is normal, there is no tenderness to palpation, no myotonia to percussion, and no fasciculations seen. Sensory examination is intact to touch and pin throughout all 4 limbs diffusely. Reflexes are 1/4 in the biceps, triceps, brachioradialis, quadriceps, and Achilles tendons bilaterally. There is no clonus bilaterally. Toes are downgoing with plantar stimulation bilaterally. Peripheral pulses are present and of normal quality distally in all 4 limbs. There is no peripheral edema noted in the limbs. Results & Data ([facility]) Vital Signs (Past 12 Hours) Vital Signs Temp Pulse Pulse Resp BP Pulse Ox 01/03/20 07:34 36.9 C 55 L 18 159/79 H 94 01/03/20 07:00 57 L 01/03/20 03:48 37 C 62 16 177/74 H 92 01/03/20 00:22 64 01/03/20 00:17 37.2 C 57 L 18 182/80 H 94 Diagnostic Findings MR brain wo con HISTORY: Mental status change expressive dysphasia, RUE weakness TECHNIQUE: Multiplanar multisequence MRI of the brain was performed without the use of contrast. COMPARISON STUDY: None. FINDINGS: Diffusion images demonstrate a small cortical infarct of the left cerebral hemisphere at the junction of the anterior and parietal lobes. The ventricular system is midline. There are components of age-related chronic small vessel changes as well as atrophy. The internal auditory canals appear symmetric. IMPRESSION: Small left cortical infarct. ACT 112: Negative or not required by law. The above report was generated using voice recognition software. It may contain grammatical, syntax or spelling errors. Electronically signed by: David Esparza M.D. 01/03/2020 6:23 AM PG Care Time/CCT Total # of Minutes Spent Total Time Spent with Patient: Total time spent is greater than 50% in coordination of care (as documented) at patient's floor/unit and/or counseling patient: Coding Level of Care Code 45130 Initial Inpt Care Lvl 3 Diagnoses Acute CVA (cerebrovascular accident) I63.9 Hypertensive urgency I16.0 Expressive aphasia R47.01 Muscle right arm weakness M62.81 Time Spent (min) 65
--- NOTE | 2020-01-03 14:54 | XCELERA ---
[id number]
[2020-01-03] MEDS ORDERED: STROKE PATIENT DISCHARGE STA (15:37)
--- NOTE | 2020-01-03 15:49 | Pharmacy Report ---
Pharmacist Stroke Counseling - Date of Service January 03, 2020 - Scope: Pharmacy has been consulted to provide medication discharge counseling for this patient admitted with ischemic stroke as per the Pharmacist Discharge Counseling for Stroke Patients Protocol. - Medications on Discharge: Home Medications Medication Instructions Recorded Confirmed albuterol sulfate 90 mcg/actuation 2 puffs INHALATION Q4H PRN #1 gm 03/09/19 01/02/20 aerosol inhaler atorvastatin 80 mg tablet 40 mg PO HS #1 tab 03/09/19 01/02/20 nitroglycerin 0.4 mg sublingual 0.4 mg SL Q5M PRN #1 tab 03/09/19 01/02/20 tablet omeprazole 20 mg tablet,delayed 20 mg PO QAM #90 tab 03/09/19 01/02/20 release simethicone 80 mg chewable tablet 160 mg PO Q6H PRN tab 03/09/19 01/02/20 trazodone 100 mg tablet 100 mg PO HS #90 tab 03/09/19 01/02/20 fluticasone propion-salmeterol 1 puff INHALATION BID PRN 03/20/19 01/02/20 [Advair Diskus] aspirin 81 mg tablet,delayed 81 mg PO QAM 03/28/19 01/02/20 release furosemide 20 mg PO BID 01/02/20 01/02/20 hydralazine 5 mg PO BID 01/02/20 01/02/20 New Rx's Medication Instructions Recorded losartan 100 mg tablet 100 mg PO DAILY #90 tab 05/22/19 metoprolol succinate 200 mg 200 mg PO DAILY #90 tab 05/22/19 tablet,extended release 24 hr fluticasone propionate 50 2 sprays INTRANASAL HS #16 gm 08/20/19 mcg/actuation nasal spray,suspension alendronate 70 mg tablet See Rx Instructions .ROUTE 08/21/19 .COMPLEX #12 tablet sertraline 100 mg tablet 200 mg PO QPM #180 tab 11/22/19 clopidogrel 75 mg PO QAM #30 tab 01/03/20 hydralazine 40 mg PO BID #240 tab 01/03/20 pantoprazole 40 mg PO QAM #30 tab 01/03/20 - Action: The above medications, specifically ones for stroke treatment/prophylaxis, have been reviewed in detail with the patient and/or patient premium service representative(s) prior to discharge. This includes indication, common adverse reactions, drug interactions, and medication administration. Medication counseling has been employed using the teach-back method to ensure understanding. - Outcome: The patient and/or patient premium service representative(s) have demonstrated understanding of the medications. Spoke with patient over the phone prior to discharge. Reviewed medication changes- specifically those to prevent stroke (adding plavix, changing omeprazole to pantoprazole d/t drug Ix). Discussed why they are being used and common side effects in great detail. Reviewed how to use the medications, what to do if doses are missed, common drug interactions, common side effects, what to watch out for while using the medications, and how to store the medications. Pt verbalized understanding and restated the trevino points of each medication. Thank you for allowing pharmacy to be involved in the care of this patient. Please call [phone] with any additional questions
[2020-01-03] MEDS ORDERED: HYDROCORTISONE HC 2.5% CRM 30GM TUBE EXT ONE (16:25)
--- NOTE | 2020-01-03 17:17 | Discharge Summary ---
Date of Service January 03, 2020 Admission HPI Per Admitting Provider Sue Walsh is a 74 year old female who presents to the ER with stroke-like symptoms. She was last well at around 5:30am this morning when she woke up no problems reported at that time. She went back to sleep in a lazy boy chair. Her woke around 10-10:30am and in hindsight she was having trouble speaking at that time but her did not notice anything. She was finding it more difficult to get out the words she wanted to say. This appeared to progress as the day went on and she went to her PCP at [facility] where she reports she was also noted to have a right arm weakness and was advised to go to the ER. She reports her symptoms lasted for around 2 hours although even after this time she was only able to say 1-2 word sentences appropriately. She denies any vision or hearing changes. She is right handed but has not noticed any weakness or change in sensation in her extremities. No facial droop noticed by family. She notes having similar symptoms last year which resolved spontaneously and she only present for medical care after 2 days. On that occasion her symptoms only lasted for 1 hour. Principal Diagnosis Stroke Discharge Exam Constitutional WD/WN, vitals as above Eyes EOM intact bilaterally; no conjunctival abnormality ENMT external ear and nose normal, oropharynx normal Neck trachea midline, no thyromegaly normal visual inspection Respiratory normal respiratory effort, lungs clear to auscultation no respiratory distress Cardiovascular RRR, no murmur, no edema Gastrointestinal (Abdomen) Inspection/Auscultation: abdomen normal to inspection; abdomen not distended Musculoskeletal no cyanosis or clubbing, extremities motor strength 5/5 Skin no rashes, warm and dry Neurologic moves all extremities and awake Psychiatric Orientation: alert, oriented to person and cooperative Discharge Data Allergies Allergy/AdvReac Type Severity Reaction Status Date / Time lisinopril Allergy Severe ANGIOEDEMA: Verified 01/02/20 15:47 LIP SWELLING codeine Allergy Intermediate LIPS SWELL Verified 01/02/20 15:47 amlodipine AdvReac Intermediate Swelling Verified 01/02/20 15:47 of lower extremities. Sulfa (Sulfonamide AdvReac Mild NAUSEA Verified 01/02/20 15:47 Antibiotics) Consultations 01/02/20 16:06 ED Decision to Admit Stat 05/27/20 20:53 Consult Case Management - Discharge Planning Routine Consult Neurology Routine Ordered Studies 01/02/20 14:09 CT angio head w con Stat CT angio neck with con Stat CT head/brain wo con Stat 01/02/20 20:53 MR brain wo con Routine Hospital Course (1) Acute CVA (cerebrovascular accident): MRI showed a small left cortical infarct. - Started on ASA/Plavix x 3 weeks, then only Plavix. - TTE showed no PFO - Continue atorvastatin 40mg HS -> LDL at goal (39). - A1c was 5.6%. - BP not at goal. Increased hydralazine to 40 mg PO BID (patient preference compared to TID dosing). Will need outpatient PCP follow-up of BP. Will see Dr. Garner in 3-4 weeks. (2) Hypertensive urgency: Continue her routine anti-hypertensives: Losartan 100mg PO daily Metoprolol ER 200mg PO daily Lasix 20mg PO BID -> Increased hydralazine to 40mg BID (was taking 25 mg BID). - If not done already, consider 2nd causes of hypertension given her high BPs despite 4 anti-hypertensive medications (NAY, hyperaldosteronism, etc). (3) Hypertension: As above (4) Hyperlipidemia: Continue atorvastatin as above (5) Esophageal reflux: Switch omeprazole to pantoprazole to avoid interaction with Plavix. (6) DVT prophylaxis: Lovenox 40mg SQ daily Total Time Total Time Spent Total Time Spent (In Minutes): 35 Discharge Plan Discharge Items Patient Disposition: Home - Self-Care Reason For Visit: TIA Discharge Diagnosis: Small stroke Activity: Resume your previous activity Non-emergency contact: Primary Care Provider and Neurologist Call non-emergency contact if: your symptoms worsen Follow-up/Referrals: Jaret Garner MD [Physician] - (Please see Dr. Garner in 3-4 weeks.) Medina Lewis MD [Primary Care Provider] - Diet: Heart Healthy Addtl Attending Provider Instructions: You were admitted with a small stroke. Fortunately your symptoms have largely gone away within a day, and you are nearly back to your baseline. We did some testing and do not see any blood vessels that are blocked in the head or neck which is good. Our neurologist, Dr. Garner, saw you in the hospital and would like you to take Plavix (a big brother to aspirin) WELL your baby aspirin for 3 weeks, then switch just over to Plavix (stop the baby aspirin). Second, we also increased your hydralazine to 40 mg (4 10 mg tablets) two times per day from the 25 mg. This is due to your blood pressure being high and being a risk for further strokes. Finally, we switched you to Protonix (pantoprazole) which does not interact with the Plavix. You can follow up with Dr. Garner in 3-4 weeks in his office to be sure you are doing well. Please return to the hospital with any further symptoms of weakness, trouble speaking, vision changes, or other concerning symptoms. Pending Studies at Discharge: No Stand-Alone Forms: Medications to Prevent Stroke, [facility], Smoking Cessation Medications and DC Order Prescriptions: New clopidogrel 75 mg Tablet 75 mg PO QAM Qty: 30 RF: 1 pantoprazole 40 mg Tablet,Delayed Release (Dr/Ec) 40 mg PO QAM Qty: 30 RF: 0 hydralazine 10 mg tablet 40 mg PO BID Qty: 240 RF: 0 Continued metoprolol succinate 200 mg tablet extended release 24 hr 200 mg PO DAILY Qty: 90 RF: 3 losartan 100 mg tablet 100 mg PO DAILY Qty: 90 RF: 1 fluticasone propionate 50 mcg/actuation spray,suspension 2 sprays intranasal HS Qty: 16 RF: 2 alendronate 70 mg tablet See Rx Instructions .ROUTE .COMPLEX Qty: 12 RF: 5 sertraline 100 mg tablet 200 mg PO QPM Qty: 180 RF: 1 atorvastatin 80 mg tablet 40 mg PO HS Qty: 1 RF: 0 nitroglycerin 0.4 mg tablet, sublingual 0.4 mg SL Q5M PRN (Reason: chest pain) Qty: 1 RF: 0 simethicone 80 mg tablet,chewable 160 mg PO Q6H PRN (Reason: abdominal distention) RF: 0 trazodone 100 mg tablet 100 mg PO HS Qty: 90 RF: 0 albuterol sulfate 90 mcg/actuation HFA aerosol inhaler 2 puffs inhalation Q4H PRN (Reason: shortness of breath or wheezing) Qty: 1 RF: 0 fluticasone propion-salmeterol [Advair Diskus] 100-50 mcg/dose blister with device 1 puff inhalation BID PRN (Reason: WHEEZING, UNSUALLY WINTER) RF: 0 aspirin [Aspirin Low Dose] 81 mg tablet,delayed release (DR/EC) 81 mg PO QAM RF: 0 furosemide 20 mg tablet 20 mg PO BID RF: 0 Discontinued omeprazole 20 mg tablet,delayed release (DR/EC) 20 mg PO QAM Qty: 90 RF: 0 hydralazine 10 mg tablet 5 mg PO BID RF: 0 Discharge Orders: Discharge Order (Routine); Ordered 01/03/20 Ordered By: Uriel Jones/Other Patient Handouts: Stroke Sx, What Is Ischemic Stroke, Stroke Home Safety, High Blood Pressure Risk Factors Admission Data Admit Date/Time: 01/02/20 17:51 Attending Provider: Uriel Henderson Admit Provider: Benito Ko Primary Care Provider: Medina Lewis Other Providers: Jaret Garner ; Uriel Henderson Other Interventions: Discharge Summary Assessment (RN) Last Done: 01/03/20 15:53 Coding Level of Care Code 13448 OBS Care - Discharge Diagnoses Acute CVA (cerebrovascular accident) I63.9 Hypertensive urgency I16.0 Hypertension I10 Hypertension type: unspecified Hyperlipidemia E78.5 Esophageal reflux K21.9 DVT prophylaxis Z29.9
[2020-01-06] MEDS ORDERED: ALENDRONATE SODIUM 70 MG TAB PO SCH (08:00)
== END 2020-01-03 17:32 | disposition home or self-care (01) ==
LOC: 2S 14:12 → ED 14:12 → SUATTDRO 17:51